=== PATIENT | male | born 1975 | race Caucasian/White ===

== ENCOUNTER 2025-08-07 17:28 | Emergency (ER) | payer BC, SELFPAY ==
--- NOTE | 2025-08-07 17:34 | ED.WOUNDLAC ---
HPI - Wound/Laceration General Chief Complaint: Wound/Laceration Stated Complaint: LT Hand Cut Time Seen by Provider: 08/07/25 17:45 Source: patient Mode of arrival: ambulatory Limitations: no limitations History of Present Illness HPI narrative: Noah is a 50-year-old male patient presenting to the clinic today with complaints of a laceration to his left hand. He reports this happened just prior to coming into the clinic. States he slipped on some wet concrete at his house and caught his hand on the side of a gutter. Has a laceration to the palmar aspect radial side of the left hand measuring approximately 2 cm. Bleeding is controlled. Tetanus status is unknown. Related Data Home Medications ?Medication ?Instructions ?Recorded ?Confirmed ?Last Taken ?Type No Home Medications 08/07/25 08/07/25 Unknown History Allergies Allergy/AdvReac Type Severity Reaction Status Date / Time No Known Allergies Allergy Verified 08/07/25 17:34 Review of Systems Review of Systems: Pertinent positives per HPI. Patient denies any fever, chills, rash, headache, visual changes, dizziness, cough, runny nose, sore throat, shortness of breath, chest pain, palpitations, nausea, vomiting, diarrhea, constipation, abdominal pain, or any urinary issues. PMFSH Comments At the time of my signature, I reviewed and agree with the nursing past medical, surgical, social, and family history. There is no relevant family history pertinent to the patient complaint. Exam Narrative: General: Well-developed, well nourished, in no apparent distress Head: Normocephalic, atraumatic. Cardio: Regular rate and rhythm, s1 and s2 normal, no murmur appreciated. Resp: Clear to auscultation bilaterally, no rhonchi, rales, wheezing or rubs. Integumentary: [place], warm, and dry, laceration measuring 2 cm to the radial aspect of the left palm, bleeding is controlled Course Course Emergency Course: Portions of this record may have been created with voice recognition software. Level of Care: Express Care Visit Vital Signs Vital signs: Vital Signs Temperature 36.9 C 08/07/25 17:37 Pulse Rate 95 08/07/25 17:37 Respiratory Rate 18 08/07/25 17:37 Blood Pressure 147/91 H 08/07/25 17:37 Pulse Oximetry 100 08/07/25 17:37 Oxygen Delivery Room Air 08/07/25 17:37 Temperature 36.9 C 08/07/25 17:37 Pulse Rate 95 08/07/25 17:37 Respiratory Rate 18 08/07/25 17:37 Blood Pressure 147/91 H 08/07/25 17:37 Pulse Oximetry 100 08/07/25 17:37 Oxygen Delivery Room Air 08/07/25 17:37 Vital signs reviewed Procedures Laceration Laceration 1: Date: 08/07/25 Site: hand Side (If applicable): left Size (cm): 2 Description: linear Depth: simple, single layer Local Anesthetic: lidocaine 1% Amount of anesthesia used (mL): 2 Pre-repair: wound explored and irrigated ====== Skin Level ====== Skin layer closed with: nylon Size (cm): 5-0 Number of sutures: 3 Technique: simple, interrupted ====== Subcutaneous Layer ====== ====== Muscle Layer ====== ====== Tendon Layer ====== Dressing: Verbal consent obtained for laceration repair. Risk and benefits explained and patient voiced understanding. Area was cleansed with sterile saline and antiseptic wound wash and a 27 gauge needle was then used to instill (2) ml of 1% lidocaine without epi into the wound edges. Area was prepped and draped using sterile technique. A 5-0 suture on a p needle was used to place (3) interrupted sutures bringing the wound edges together- well approximated. Patient tolerated procedure well. Sterile dressing applied. MDM - Wound/Laceration MDM Narrative Medical decision making narrative: At the time of visit patient is resting comfortably on the exam table. Patient appears to be nontoxic. Complaints of a laceration to his left hand. He reports this happened just prior to coming into the clinic. States he slipped on some wet concrete at his house and caught his hand on the side of a gutter. Has a laceration to the palmar aspect radial side of the left hand measuring approximately 2 cm. Bleeding is controlled. On exam patient has a 2 cm to the radial aspect of the left palm, bleeding is controlled verbal consent to for laceration repair. Tetanus shot is unknown. Tdap was ordered. Procedures: Laceration repair was performed in the clinic. 5-0 sutures on a P3 needle was used to place 3 interrupted sutures bringing wound edges well approximate. Patient tolerated well. Dressing bandage was applied. Plan: Patient has a 2 cm laceration that was repaired in the clinic today. Stitches out in 10 days. Supportive measures were discussed with the patient and they voiced understanding discharge instructions and agrees to treatment plan. Return precautions reviewed Differential Diagnosis Differential diagnosis: Likely laceration, abrasion and avulsion of skin Discharge Plan Discharge Clinical Impression: Laceration of hand Qualifiers: Encounter type: initial encounter Foreign body presence: without foreign body Laterality: left Qualified Code(s): S61.412A - Laceration without foreign body of left hand, initial encounter Patient Disposition: Home Condition: Stable Instructions: Antibiotic Form, Laceration (ED) Additional Instructions: Tdap was given in the clinic today. Leave bandage on for 24 hours then may remove and apply band aide covering as needed. Keep wound clean and dry You may shower. Clean the wound with soap and water and pat dry Skin sutures out in 10 days. Avoid soaking your hand in dirty water. Watch for signs and symptoms of infection- redness, streaking, swelling, purulent discharge, or increase in pain. Follow up with your PCP for suture removal or return to the Express care. Patient Language: Sami Prescriptions: No Action No Home Medications Follow-up/Referrals: [facility]YSIC[facility] [Primary Care Provider, Internal Medicine] Time of Disposition: 18:00 Quality NIHSS Nursing Documentation ED NIHSS nursing documentation: reviewed/agree
[2025-08-07 17:37] VITALS: BP 147/91; PULSE 95; RESP 18; TEMP 36.9; O2SAT 100
[2025-08-07] MEDS: TETANUS,DIPHTHERIA,AC PERTUSSIS ADULT (0.5 ML) BOOSTRIX IM (17:49)
[2025-08-07] MEDS: LIDOCAINE 1% LOCAL INJ 2 ML AMPUL 4 ML INFILTRATE (17:49)
== END 2025-08-07 18:09 | disposition home or self-care (01) ==
PROVIDERS: Emergency Provider Nurse Practitioner Family
DX: S61.412A Laceration without foreign body of left hand, initial encounter (principal); W22.8XXA Striking against or struck by other objects, initial encounter; Z23 Encounter for immunization
CPT/HCPCS: 12001; 90471; 90715; 99212; G0463; J2003